=== PATIENT | female | born 1955 | race Caucasian/White ===

== ENCOUNTER 2017-04-13 11:15 | Outpatient (CLI) | payer BC | END 2017-04-13 11:16 | disposition home or self-care (01) | LOC: CTENTCT 11:15 | PROVIDERS: ATTEND Specialist | DX: J32.8 Other chronic sinusitis (principal) | CPT/HCPCS: 70486 ==

== ENCOUNTER 2018-11-17 10:45 | Outpatient (CLI) | payer BC | END 2018-11-17 10:46 | disposition home or self-care (01) | LOC: CTENTCT 10:45 | PROVIDERS: ATTEND Specialist | DX: J32.9 Chronic sinusitis, unspecified (principal) | CPT/HCPCS: 87070 ==